=== PATIENT | female | born 1935 | race Caucasian/White ===

== ENCOUNTER → 2016-08-22 | Outpatient (CLI) | payer MEDICARE ==
[~2016-08-22] MED LIST: AMLO2.5T PO; ASPI81TA17 PO; CALC600T34 PO; ENAL5TAB PO; ESTR1 PO; FOLI1 PO; MAGN400C2 PO; PRED50 PO; PROT40TA PO; VALT1TAB26 PO
[2016-08-22 09:41] LABS: AUTOMATED NEUTROPHIL # 4.7 TH/MM3 (1.8-7.7); BASOPHIL # 0.1 TH/MM3 (0-0.2); BASOPHIL % 0.8 % (0.0-2.0); EOSINOPHIL # 0.2 TH/MM3 (0-0.4); EOSINOPHIL % 2.3 % (0.0-4.0); HEMATOCRIT 40.7 % (35.0-46.0); HEMO FLAGS DIFF FINAL; LYMPH % 26.4 % (9.0-44.0); LYMPHOCYTE # 1.9 TH/MM3 (1.0-4.8); MEAN CELL VOLUME 87.8 FL (80.0-100.0); MEAN CORPUSCULAR HEMOGLOBIN 29.8 PG (27.0-34.0); MEAN CORPUSCULAR HGB CONC 33.9 % (32.0-36.0); MONO % 5.7 % (0.0-8.0); NEUT % 64.8 % (16.0-70.0); PLATELET COUNT 316 TH/MM3 (150-450); RED BLOOD COUNT 4.63 MIL/MM3 (4.00-5.30); RED CELL DISTRIBUTION WIDTH 13.6 % (11.6-17.2); WHITE BLOOD COUNT 7.2 TH/MM3 (4.0-11.0)
[2016-08-22 09:46] LABS: ALKALINE PHOSPHATASE 71 U/L (45-117); ALT (GPT) 45 U/L (10-53); ANION GAP 6 MEQ/L (5-15); AST (GOT) 49 U/L (15-37); BICARBONATE 25.8 MEQ/L (21.0-32.0); BLOOD UREA NITROGEN 19 MG/DL (7-18); CHLORIDE 107 MEQ/L (98-107); GLOMERULAR FILTRATION RATE 70 ML/MIN (>89); GLUCOSE,FASTING 96 MG/DL (74-99); HDL CHOLESTEROL 44.7 MG/DL (40.0-60.0); LDL CHOLESTEROL 88 MG/DL (0-99); POTASSIUM 4.4 MEQ/L (3.5-5.1); SODIUM (NA) 139 MEQ/L (136-145); TOTAL BILIRUBIN ADULT 0.6 MG/DL (0.2-1.0)
== END ==
LOC: ELAB 07:07
PROVIDERS: ATTEND Internal Medicine Interventional Cardiology
DX: I11.9 Hypertensive heart disease without heart failure (principal); E78.2 Mixed hyperlipidemia; I44.7 Left bundle-branch block, unspecified
CPT/HCPCS: 36415; 80053; 80061; 85025

== ENCOUNTER → 2017-03-30 | Outpatient (CLI) | payer MEDICARE ==
[2017-03-30 07:33] LABS: MEAN CELL VOLUME 88.4 FL (80.0-100.0); MEAN CORPUSCULAR HEMOGLOBIN 31.2 PG (27.0-34.0); MEAN CORPUSCULAR HGB CONC 35.3 % (32.0-36.0); PLATELET COUNT 255 TH/MM3 (150-450); RED BLOOD COUNT 4.53 MIL/MM3 (4.00-5.30); RED CELL DISTRIBUTION WIDTH 13.1 % (11.6-17.2); REVIEW FLAG FINAL; WHITE BLOOD COUNT 5.9 TH/MM3 (4.0-11.0)
[2017-03-30 08:03] LABS: ALT (GPT) 20 U/L (10-53); ANION GAP 5 MEQ/L (5-15); AST (GOT) 25 U/L (15-37); BICARBONATE 26.8 MEQ/L (21.0-32.0); BLOOD UREA NITROGEN 20 MG/DL (7-18); CHLORIDE 107 MEQ/L (98-107); GLOMERULAR FILTRATION RATE 60 ML/MIN (>89); GLUCOSE,FASTING 93 MG/DL (74-99); POTASSIUM 4.3 MEQ/L (3.5-5.1); SODIUM (NA) 139 MEQ/L (136-145)
[2017-03-30 08:07] LABS: ALKALINE PHOSPHATASE 71 U/L (45-117); TOTAL BILIRUBIN ADULT 0.8 MG/DL (0.2-1.0)
== END ==
LOC: CLAB 07:09
PROVIDERS: ATTEND Internal Medicine Interventional Cardiology
DX: R00.0 Tachycardia, unspecified (principal); R00.2 Palpitations; Z79.899 Other long term (current) drug therapy
CPT/HCPCS: 36415; 80053; 84443; 85027

== ENCOUNTER 2017-04-19 07:28 | Emergency (ER) | payer MEDICARE ==
[~2017-04-19] VITALS: Ht 157.5 cm; Wt 67.5 kg
[2017-04-19 07:29] VITALS: BP 149/90; PULSE 69; RESP 16; TEMP 98.4; O2SAT 96
[2017-04-19] MEDS ORDERED: SILVER NITR/POTASSIUM NITRATE APPLICATORS TOPICAL ONE (08:00)
--- NOTE | 2017-04-19 08:06 | PD ---
HPI Chief Complaint: Nosebleed Time Seen by Provider: 07:51 Travel History International Travel<30 days: No Contact w/Intl Traveler<30days: No Traveled to known affect area: No History of Present Illness HPI Send 80 year-old woman presents emergency department complaining of nosebleed this morning. States it started mostly in the left nostril was pouring out of both nostrils. She recently started Xarelto for A. fib. States her doctor also switched around several heart medications and stopped her EMERY inhibitor, and her amlodipine, and started her on something else but she is not sure what. She otherwise has had a little bit of cough and cold. Feeling otherwise well. No other recent illness or injury. History Past Medical History Narrative Medical Hypertension . "Abnormal EKG" Menopausal Status post hysterectomy Menopausal: Yes : 4 Para: 4 Social History Alcohol Use: Yes (occassionaly ) Tobacco Use: No Allergies-Medications (Allergen,Severity, Reaction): Coded Allergies: No Known Allergies (Unverified Adverse Reaction, Unknown, 04/19/17) Reported Meds & Prescriptions Reported Meds & Active Scripts Active Reported Estradiol 1 Mg Tab 1 Mg PO DAILY Enalapril (Enalapril Maleate) 10 Mg Tab 10 Mg PO DAILY Xarelto (Rivaroxaban) 15 Mg Tab 15 Mg PO DAILY Diltiazem (Diltiazem HCl) 120 Mg Tab 120 Mg PO QID Montelukast (Montelukast Sodium) 10 Mg Tab 10 Mg PO HS Omeprazole 20 Mg Tab 20 Mg PO DAILY Review of Systems Except as stated in HPI: all other systems reviewed are Neg Physical Exam Narrative GENERAL: Well 80 year-old woman, no acute distress. SKIN: Focused skin assessment warm/dry. HEAD: Atraumatic. Normocephalic. EYES: Pupils equal and round. No scleral icterus. No injection or drainage. ENT: No nasal bleeding or discharge. There is no dry blood in the nares. Inside the left naris along the septum there is a small area of what may have been previous bleeding. No other abnormalities are seen. CARDIOVASCULAR: Warm and well perfused. RESPIRATORY: Normal rate and effort. MUSCULOSKELETAL: No obvious deformities. Data Data Last Documented VS Vital Signs Date Time Temp Pulse Resp B/P (MAP) Pulse Ox O2 Delivery O2 Flow Rate FiO2 04/19/17 07:29 98.4 69 16 149/90 (109) 96 Room Air Orders Orders Silver Nitrate Applicators (Silver Nitra (04/19/17 08:00) Enalapril (Vasotec) (04/19/17 08:30) Acetaminophen (Tylenol) (04/19/17 08:30) MDM Medical Decision Making Medical Screen Exam Complete: Yes Emergency Medical Condition: Yes Differential Diagnosis Epistaxis, hypertension, coagulopathy, other Narrative Course Medical decision making INITIAL: 80 year-old woman with epistaxis. Blood pressures a little bit elevated, they've been switching around her medications, she also is on Xarelto. There is a small area of what may have been active bleeding. We will cauterize a small area, treat blood pressure, reassess. Procedures Procedure Narrative Cauterization: Focus of possible bleeding in the left naris along the septum was cauterized using silver nitrate. Patient tolerated well. Diagnosis Primary Impression: Epistaxis Additional Instructions: Follow-up with Dr. Key tomorrow. If you're nosebleed begins to bleed again, blow your nose to expel any clots. Pinch your nose together at the end. Hold it for a full 15 minutes. After 15 minutes, release of this is still bleeding hold it again for another full 15 minutes. Do this for a total of an hour. If it is still bleeding after that, return to the emergency department. If you have a second episode of nose bleeding I would hold your Xarelto for 2 days. Med/Other Pt SpecificInfo: No Change to Meds Disposition: 01 DISCHARGE HOME Condition: Stable Remington Tao MD Apr 19, 2017 08:06
[2017-04-19] MEDS ORDERED: ENALAPRIL MALEATE 5 MG TAB PO ONE (08:30)
[2017-04-19] MEDS ORDERED: ACETAMINOPHEN 325 MG TAB PO ONE (08:30)
[2017-04-19] MEDS ORDERED: ENAL10TA PO (08:32)
[2017-04-19] MEDS ORDERED: DILT120T PO (08:32)
[2017-04-19] MEDS ORDERED: ESTR1TAB PO (08:32)
[2017-04-19] MEDS ORDERED: MONT10TA4 PO (08:32)
[2017-04-19] MEDS ORDERED: XARE15TA PO (08:32)
[2017-04-19] MEDS ORDERED: OMEP20TA93 PO (08:32)
[2017-04-19 09:12] VITALS: BP 179/84; PULSE 84
== END 2017-04-19 09:13 | disposition home or self-care (01) ==
LOC: NEPE 07:28
DX: R04.0 Epistaxis (principal); R05 Cough; I10 Essential (primary) hypertension; Z79.899 Other long term (current) drug therapy
CPT/HCPCS: 30901

== ENCOUNTER → 2017-07-31 | Outpatient (CLI) | payer MEDICARE ==
[~2017-07-31] MED LIST changes: -AMLO2.5T PO; -ASPI81TA17 PO; -CALC600T34 PO; +DILT120T PO; +ENAL10TA PO; -ENAL5TAB PO; -ESTR1 PO; +ESTR1TAB PO; -FOLI1 PO; -MAGN400C2 PO; +MONT10TA4 PO; +OMEP20TA93 PO; -PRED50 PO; -PROT40TA PO; -VALT1TAB26 PO; +XARE15TA PO
[2017-07-31 07:49] LABS: BICARBONATE 26.1 MEQ/L (21.0-32.0); CALCIUM 9.1 MG/DL (8.5-10.1); CREATININE 0.86 MG/DL (0.50-1.00)
== END ==
LOC: CLAB 07:05
PROVIDERS: ATTEND Internal Medicine Interventional Cardiology
DX: I11.9 Hypertensive heart disease without heart failure (principal); I34.0 Nonrheumatic mitral (valve) insufficiency; R60.0 Localized edema; I48.0 Paroxysmal atrial fibrillation; Z79.01 Long term (current) use of anticoagulants
CPT/HCPCS: 36415; 80048